=== PATIENT | female | born 1930 | race Caucasian/White ===

== ENCOUNTER 2019-11-22 13:35 | Emergency (ER) | payer BC ==
[~2019-11-22] VITALS: Ht 167.6 cm; Wt 77.1 kg
[2019-11-22 19:37] VITALS: BP 133/93
== END 2019-11-22 19:39 | disposition home or self-care (01) ==
LOC: ER 13:35
DX: S70.01XA Contusion of right hip, initial encounter (principal); S80.01XA Contusion of right knee, initial encounter; S50.02XA Contusion of left elbow, initial encounter; Z90.710 Acquired absence of both cervix and uterus; W19.XXXA Unspecified fall, initial encounter; Y93.89 Activity, other specified; Y99.8 Other external cause status; Y92.89 Other specified places as the place of occurrence of the external cause
CPT/HCPCS: 73080; 73502; 73564; 93005